=== PATIENT | female | born 1970 | race Caucasian/White ===

== ENCOUNTER 2016-07-02 15:52 | Emergency (ER) | payer MEDICAID ==
--- NOTE | 2016-07-02 16:30 | Emergency Department Record ---
History of Present Illness - General Chief Complaint: Numbness Stated Complaint: THINKS SHE MAY HAVE HAD A STROKE Time Seen by Provider: 07/02/16 16:08 Source: Patient Mode of Arrival: Ambulatory - History of Present Illness Initial Comments: The patient states that she thinks she may have had a stroke. She was seen here Friday06-29-16 and was treated for a muscle spasm in her right shoulder, arm, and back and given norco for home. She is back now because this same arm, her forearm, is feeling "heavy" and she has to pick it up with her other hand. She states, "I feel like I wanna crawl out of my skin and yell at it." [facility] includes diagnosed with aneurysm in 2006 which was just watched. In 2011 it was enlarging, so she had brain surgery to repair it in [facility]. She states they were finishing up with her surgery, they saw a clot forming, quirted something to dissolve the clot and the next thing she knows she woke up in ICU 4 days later after having been in a coma. She had rehab to walk and talk again, but has trouble with her memory, and a trace of left leg weakness. She has had a total of 4 seizures for which she takes Topamax. Today she has the same symptoms only the forearm is heavy. She denies bee, stiff neck, vision changes, nausea, vomiting, or other new symptoms. She wants to be checked for a stroke. She has 2 coils and a stent in her brain, and is told she needs surgery for another stent because of blood flow abnormality. Onset/Timin -: Days(s) Place: Home Associated Symptoms: Confusion, Headaches, Weakness Treatments Prior to Arrival: Other Treatment Prior to Arrival Comment:: Tylenol. - [place] Coma Scale Eye Response: (4) Open spontaneously Motor Response: (6) Obeys commands Verbal Response: (5) Oriented [place] Total: 15 - Related Data Home Medications: Home Medications Medication Instructions Recorded Confirmed Last Taken Clonazepam [Klonopin] 2 mg PO DAILY 07/02/16 07/02/16 07/02/16 Clopidogrel Bisulfate [Plavix] 75 mg PO DAILY 07/02/16 07/02/16 07/02/16 Ferrous Sulfate [Iron] 325 mg PO DAILY 07/02/16 07/02/16 07/02/16 Fluoxetine HCl [Prozac] 40 mg PO DAILY 07/02/16 07/02/16 07/02/16 Folic Acid 1 mg PO DAILY 07/02/16 07/02/16 07/02/16 Quetiapine Fumarate [Seroquel] 100 mg PO DAILY 07/02/16 07/02/16 07/02/16 Topiramate [Topamax] 50 mg PO DAILY 07/02/16 07/02/16 07/02/16 Allergies/Adverse Reactions: Allergies Allergy/AdvReac Type Severity Reaction Status Date / Time aspirin Allergy HYPERSENSIT Verified 07/02/16 16:05 IVITY Penicillins Allergy ANAPHYLAXIS Verified 07/02/16 16:05 Travel Screening - Travel/Exposure Within Last 30 Days Have you traveled within the last 30 days?: No Review of Systems Reviewed: No additional complaints except as noted below Constitutional: Reports: As per HPI. Denies: Chills, Fever, Malaise, Night sweats, Weakness, Weight change Eyes: Reports: As per HPI. Denies: Eye discharge, Eye pain, Photophobia, Vision change ENT: Reports: As per HPI. Denies: Congestion, Dental pain, Ear pain, Epistaxis , Hearing loss, Throat pain Respiratory: Reports: As per HPI. Denies: Cough, Dyspnea, Hemoptysis, Stridor, Wheezes Cardiovascular: Reports: As per HPI. Denies: Arrhythmia, Chest pain, Dyspnea on exertion, Edema, Murmurs, Orthopnea, Palpitations, Paroxysmal nocturnal dyspnea, Rheumatic Fever, Syncope Endocrine: Reports: As per HPI. Denies: Fatigue, Heat or cold intolerance, Polydipsia, Polyuria Gastrointestinal: Reports: As per HPI. Denies: Abdominal pain, Constipation, Diarrhea, Hematemesis, Hematochezia, Melena, Nausea, Vomiting Genitourinary: Reports: As per HPI. Denies: Abnormal menses, Discharge, Dyspareunia, Dysuria, Frequency, Hematuria, Incontinence, Retention, Urgency Musculoskeletal: Reports: As per HPI. Denies: Arthralgia, Back pain, Gout, Joint swelling, Myalgia, Neck pain Skin: Reports: As per HPI. Denies: Bruising, Change in color, Change in hair/ nails, Lesions, Pruritus, Rash Neurological: Reports: As per HPI. Denies: Abnormal gait, Confusion, Headache, Numbness, Paresthesias, Seizure, Tingling, Tremors, Vertigo, Weakness Psychiatric: Reports: As per HPI. Denies: Anxiety, Auditory hallucinations, Depression, Homicidal thoughts, Suicidal thoughts, Visual hallucinations Hematological/Lymphatic: Reports: As per HPI. Denies: Anemia, Blood Clots, Easy bleeding, Easy bruising, Swollen glands Past Medical History - SOCIAL HISTORY Smoking Status: Former smoker Alcohol Use: None Drug Use: None - RESPIRATORY Hx Respiratory Disorders: No - CARDIOVASCULAR Hx Cardio Disorders: No - NEURO Hx Neuro Disorders: Yes Hx Seizures: Yes (2011) Hx TIA: Yes - GI Hx GI Disorders: Yes Comment:: colitis - Hx Genitourinary Disorders: No - ENDOCRINE Hx Endocrine Disorders: No - MUSCULOSKELETAL Hx Musculoskeletal Disorders: Yes Hx Fibromyalgia: Yes - PSYCH Hx Psych Problems: Yes Hx Anxiety: Yes Hx Depression: Yes - HEMATOLOGY/ONCOLOGY Hx Hematology/Oncology Disorders: No Family Medical History Any Significant Family History?: No Physical Exam - General General Appearance: Alert, Oriented x3, Cooperative, No acute distress, Anxious (slightly abnormal affect with trace of anxiety; difficult to know if this is her baseline) - Head Head exam: Normal inspection - Eye Eye exam: Normal appearance, PERRL, EOMI. negative: Nystagmus Pupils: Normal accommodation. negative: Miosis, Mydriatic, Unequal - ENT ENT exam: Normal exam, Mucous membranes moist, Normal external ear exam, Normal orophraynx, TM's normal bilaterally Ear exam: Normal external inspection. negative: External canal tenderness Nasal Exam: Normal inspection. negative: Discharge, Sinus tenderness Mouth exam: Normal external inspection, Tongue normal Teeth exam: Normal inspection. negative: Dental caries Throat exam: Normal inspection. negative: Tonsillar erythema, Tonsillar exudate - Neck Neck exam: Normal inspection, Full ROM. negative: Lymphadenopathy, Meningismus , Tenderness - Respiratory Respiratory exam: Normal lung sounds bilaterally. negative: Respiratory distress - Cardiovascular Cardiovascular Exam: Normal rhythm, Normal heart sounds, Tachycardia - GI/Abdominal GI/Abdominal exam: Soft, Normal bowel sounds. negative: Tenderness - Rectal Rectal exam: Deferred - exam: Deferred - Extremities Extremities exam: Normal inspection, Full ROM, Normal capillary refill. negative: Calf tenderness, Pedal edema, Tenderness - Back Back exam: Reports: Normal inspection, Full ROM. Denies: Muscle spasm, Rash noted, Tenderness - Neurological Neurological exam: Alert, CN II-XII intact, Normal gait, Oriented X3, Reflexes normal (reflexes equal bilaterally brisk 2-3 plus times 4 extremities), Other ( patient will not lift her right arm, but when distracted she held up both arms for at least a minute with normal strength; pulses, color, temperature are equal bilaterally in the arms; there is no edema, no bony tenderness, but patient complains, "my muscles hurt, don't touch there" pointing to her forearm muscles. ) - Psychiatric Psychiatric exam: Anxious, Flat affect, Normal mood. negative: Homicidal ideation, Suicidal ideation - Skin Skin exam: Dry, Intact, Normal color, Warm Course Vital Signs 07/02/16 15:57 Temperature 98.5 F Pulse Rate 120 H Respiratory 22 Rate Blood Pressure 128/92 Pulse Ox 96 - Reevaluation(s) Reevaluation #1: Interviewed boyfriend and two kids who live with the patient. They have not witnessed any abnormal behavior for her, no seizing, no falls. Boyfriend thinks she is nervous about her brain surgery coming up in July in [place]. 07/02/16 17:12 07/02/16 17:31 Reevaluation #2: Patient 07/02/16 17:31 Reevaluation #3: Patient is feeling much better. Smiling, ready to go home. She was instructed to call her PCP in [place] tomorrow to recheck this week. She is not to drive. 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 ) - Lab Data Result diagrams: 07/02/16 16:47 07/02/16 16:47 Disposition Disposition: Discharge Clinical Impression: Anxiety, Pain of right forearm Disposition: Home, Self-Care Condition: (1) Good Instructions: Generalized Anxiety Disorder (ED) Additional Instructions: Home with family. Do not drive. Continue present meds. Take your clonidine tonight as prescribed. Follow up with PCP later this week for recheck of arm pain. Call in a.m. for this appointment.
[2016-07-02] MEDS ORDERED: LORAZEPAM 2 MG/ML VIAL IV ONE (16:56)
[2016-07-02 17:02] LABS: BASO % 0.6 % (0-6); EOS % 2.6 % (0-6); GRAN % 62.3 % (47-80); HEMOGLOBIN 12.1 gm/dl (11.6-16.0); LYMPH % 22.7 % (16-45); MEAN CELL VOLUME 90.2 fl (81-97); MEAN CORPUSCULAR HEMOGLOBIN 29.5 pg (27-33); MEAN CORPUSCULAR HGB CONC 32.7 g/dl (32-36); MEAN PLATELET VOLUME 9.7 fl (7.4-10.4); MONO % 11.8 % (0-9); PLATELET COUNT 267 K/uL (130-400); RED CELL DISTRIBUTION WIDTH 13.5 % (11.5-14.5); WHITE BLOOD COUNT W/O DIFF 5.3 K/uL (4.2-12.2)
[2016-07-02 17:06] LABS: URINE APPEARANCE CLEAR; URINE BILIRUBIN NEGATIVE (NEGATIVE); URINE BLOOD TRACE-I (NEGATIVE); URINE COLOR YELLOW; URINE GLUCOSE (UA) NEGATIVE (NEGATIVE); URINE KETONE TRACE (NEGATIVE); URINE LEUKOCYTE ESTERASE NEGATIVE (NEGATIVE); URINE NITRITE NEGATIVE (NEGATIVE); URINE PROTEIN NEGATIVE (NEGATIVE); URINE UROBILINOGEN 0.2 E.U./dL (0.20 - 1.00)
[2016-07-02 17:09] LABS: ANION GAP 8.4 (7-16); BLOOD UREA NITROGEN 8 mg/dL (7-17); CARBON DIOXIDE 21.6 mmol/L (22-30); CREATININE 0.7 mg/dL (0.52-1.04); EST GLOMERULAR FILTRATION RATE > 60 ml/min; GLUCOSE,RANDOM 89 mg/dL (70-110)
[2016-07-02 17:11] LABS: INR 0.94; PARTIAL THROMBOPLASTIN TIME 27.7 SECONDS (24.5-39.1); PROTHROMBIN TIME (PATIENT) 10.6 SECONDS (9.5-12.1)
[2016-07-02 17:17] LABS: URINE BACTERIA FEW; URINE MUCUS MODERATE; URINE RBC 0 - 2 (NONE SEEN); URINE SQUAMOUS EPITHELIAL CELL 0 - 2 /hpf; URINE WBC 0 - 2 (0-2/hpf)
[2016-07-02 17:22] LABS: CKMB < 0.2 ug/L (0-6); TROPONIN I < 0.012 ng/mL (0.00-0.034)
== END 2016-07-02 17:45 | disposition home or self-care (01) ==
LOC: ER 15:52
DX: M79.631 Pain in right forearm (principal); R51 Headache; R53.1 Weakness; R20.2 Paresthesia of skin; R41.0 Disorientation, unspecified; G40.909 Epilepsy, unspecified, not intractable, without status epilepticus; F41.9 Anxiety disorder, unspecified
CPT/HCPCS: 99284 ×2; 96374; 85025; 85730; 85610; 82553; 84484; 80048; 81001; 70450; J2060

== ENCOUNTER 2016-12-09 10:30 | Emergency (ER) | payer MEDICAID ==
[2016-12-09] MEDS ORDERED: PREDNISONE 20 MG TAB PO ONE (10:43)
[2016-12-09] MEDS ORDERED: AZITHROMYCIN 500 MG TABLET PO ONE (10:43)
--- NOTE | 2016-12-09 10:49 | Emergency Department Record ---
History of Present Illness - General Chief Complaint: Cough Stated Complaint: COUGH Time Seen by Provider: 12/09/16 10:40 Source: Patient Mode of Arrival: Ambulatory Limitations: No limitations - History of Present Illness Initial Comments: 46 yo female presents with sore throat for one week. For the last several days she has had cough that is productive with green sputum. No fevers. NO nausea or vomiting. No rash. No edema. No chest pain. She quit smoking in 2011. She denies any formal diagnosis of asthma or COPD. No vomiting. She has chronic colitis with loose stools without blood. MD Complaint: Cough, Nasal congestion, Sore throat Onset/Timin -: Week(s) Severity: Moderate Severity scale (1-10): 6 Consistency: Intermittent Improves With: Nothing Worsens With: Other (cough) Treatments Prior to Arrival: None - Related Data Previous Rx's Medication Instructions Recorded Hydrocodone/Acetaminophen [[place] 1 each PO QID #10 tablet 06/29/16 5-325 Tablet] Azithromycin [Zithromax] 250 mg PO DAILY #4 tab 12/09/16 Prednisone [Prednisone 20Mg] 20 mg PO BID #10 tab 12/09/16 Allergies Allergy/AdvReac Type Severity Reaction Status Date / Time Opioids - Morphine Analogues Allergy Intermediate RASH Verified 12/09/16 10:36 aspirin Allergy HYPERSENSIT Verified 12/09/16 10:36 IVITY Penicillins Allergy ANAPHYLAXIS Verified 12/09/16 10:36 Travel Screening - Travel/Exposure Within Last 30 Days Have you traveled within the last 30 days?: No Review of Systems Constitutional: Denies: Chills, Fever, Malaise, Weakness Eyes: Denies: Eye discharge, Eye pain, Photophobia, Vision change ENT: Reports: Congestion Respiratory: Reports: Cough. Denies: Dyspnea, Hemoptysis, Stridor, Wheezes Cardiovascular: Denies: Chest pain, Palpitations, Syncope Endocrine: Denies: Fatigue, Polydipsia, Polyuria Gastrointestinal: Reports: Diarrhea (chronic). Denies: Abdominal pain, Constipation, Melena, Nausea, Vomiting Genitourinary: Denies: Dysuria, Urgency Musculoskeletal: Denies: Arthralgia, Back pain, Myalgia, Neck pain Skin: Denies: Bruising, Change in color, Pruritus Neurological: Denies: Headache, Numbness, Weakness Psychiatric: Denies: Anxiety Hematological/Lymphatic: Denies: Anemia, Blood Clots, Easy bleeding, Easy bruising, Swollen glands Past Medical History - SOCIAL HISTORY Smoking Status: Former smoker Alcohol Use: None Drug Use: None - RESPIRATORY Hx Respiratory Disorders: No - CARDIOVASCULAR Hx Cardio Disorders: No - NEURO Hx Neuro Disorders: Yes Hx Seizures: Yes (2011) Hx TIA: Yes - GI Hx GI Disorders: Yes Comment:: colitis - Hx Genitourinary Disorders: No - ENDOCRINE Hx Endocrine Disorders: No - MUSCULOSKELETAL Hx Musculoskeletal Disorders: Yes Hx Fibromyalgia: Yes - PSYCH Hx Psych Problems: Yes Hx Anxiety: Yes Hx Depression: Yes - HEMATOLOGY/ONCOLOGY Hx Hematology/Oncology Disorders: No Family Medical History Any Significant Family History?: No Physical Exam - General General Appearance: Alert, Oriented x3, Cooperative, No acute distress Limitations: No limitations - Head Head exam: Atraumatic, Normocephalic, Normal inspection - Eye Eye exam: Normal appearance. negative: Conjunctival injection, Periorbital swelling - ENT ENT exam: Normal exam, Mucous membranes moist Ear exam: Normal external inspection Nasal Exam: Normal inspection Mouth exam: Normal external inspection Teeth exam: Normal inspection Throat exam: Tonsillar erythema. negative: Normal inspection, Tonsillomegaly, Tonsillar exudate, R peritonsillar mass, L peritonsillar mass - Neck Neck exam: Normal inspection. negative: Lymphadenopathy - Respiratory Respiratory exam: Normal lung sounds bilaterally, Rhonchi. negative: Accessory muscle use, Decreased breath sounds, Prolonged expiratory, Respiratory distress , Wheezes - Cardiovascular Cardiovascular Exam: Regular rate, Normal rhythm, Normal heart sounds - GI/Abdominal GI/Abdominal exam: Soft. negative: Tenderness - Rectal Rectal exam: Deferred - exam: Deferred - Extremities Extremities exam: Normal inspection, Full ROM, Normal capillary refill. negative: Tenderness - Back Back exam: Reports: Normal inspection, Full ROM. Denies: CVA tenderness (R), CVA tenderness (L), Muscle spasm, Rash noted, Tenderness - Neurological Neurological exam: Alert, Normal gait, Oriented X3 - Psychiatric Psychiatric exam: Normal affect, Normal mood. negative: Agitated, Anxious - Skin Skin exam: Dry, Intact, Normal color, Warm Course Vital Signs 12/09/16 10:38 Temperature 98.6 F Pulse Rate 92 H Respiratory 20 Rate Blood Pressure 120/75 Pulse Ox 98 - Reevaluation(s) Reevaluation #1: Vitals reviewed No tachycardia, hypoxia 12/09/16 10:46 Disposition Disposition: Discharge Clinical Impression: Bronchitis Disposition: Home, Self-Care Condition: (1) Good Instructions: Acute Bronchitis (ED) Additional Instructions: Call your doctor for close follow up Return if worse or any new concerns Take the medication as directed Prescriptions: Azithromycin [Zithromax] 250 mg PO DAILY #4 tab Prednisone [Prednisone 20Mg] 20 mg PO BID #10 tab Forms: Patient Portal Access Time of Disposition: 10:48 Quality - Quality Measures Quality Measures: N/A - Blood Pressure Screening Does Patient Have Any of the Following: No Blood Pressure Classification: Pre-Hypertensive BP Reading Systolic Measurement: 120 Diastolic Measurement: 75 Screening for High Blood Pressure: < Pre-Hypertensive BP, F/U Documented > [ G8950] Pre-Hypertensive Follow-up Interventions: Referral to alternative/primary care provider.
== END 2016-12-09 11:00 | disposition home or self-care (01) ==
LOC: ER 10:30
DX: J20.9 Acute bronchitis, unspecified (principal); Z87.891 Personal history of nicotine dependence
CPT/HCPCS: 99282; J7512

== ENCOUNTER 2017-02-03 11:25 | Emergency (ER) | payer MEDICAID ==
--- NOTE | 2017-02-03 11:40 | Emergency Department Record ---
History of Present Illness - General Chief complaint: Female Urogenital Problem Stated complaint: BLADDER PROBLEMS Time Seen by Provider: 02/03/17 11:27 Source: Patient Mode of Arrival: Ambulatory Limitations: No limitations - History of Present Illness Initial comments: 46 yo female presents with increased urination and urge to urinate the last 5 days. She feels like her bladder fills quickly, she voids and then needs to void again. No fevers. No hematuria. No nausea or vomiting. No back pain. No other symptoms. She denies history of DM, renal stones, bladder surgery, kidney disease. She states her urine has a cloudy residue. She denies vaginal discharge or bleeding. MD Complaint: Dysuria -: Days(s) (5) Location: Suprapubic Radiation: Non-radiating Severity: Moderate Quality: Other (Pressure) Consistency: Constant Improves with: None Worsens with: None Associated Symptoms: Denies other symptoms - Related Data Previous Rx's Medication Instructions Recorded Metronidazole [Flagyl] 500 mg PO BID #13 tablet 02/03/17 Allergies Allergy/AdvReac Type Severity Reaction Status Date / Time Opioids - Morphine Analogues Allergy Intermediate RASH Verified 12/09/16 10:36 aspirin Allergy HYPERSENSIT Verified 12/09/16 10:36 IVITY Penicillins Allergy ANAPHYLAXIS Verified 12/09/16 10:36 Review of Systems Constitutional: Denies: Chills, Fever, Malaise, Weakness Eyes: Denies: Eye discharge, Eye pain ENT: Denies: Congestion, Throat pain Respiratory: Denies: Cough, Dyspnea, Hemoptysis Cardiovascular: Denies: Chest pain, Syncope Endocrine: Reports: Polyuria. Denies: Fatigue, Polydipsia Gastrointestinal: Reports: As per HPI, Abdominal pain. Denies: Diarrhea, Nausea , Vomiting Genitourinary: Reports: Discharge (cloudy urine), Dysuria, Frequency, Urgency. Denies: Abnormal menses, Hematuria, Incontinence Musculoskeletal: Denies: Arthralgia, Back pain, Myalgia, Neck pain Skin: Denies: Bruising, Change in color, Rash Neurological: Denies: Headache, Numbness, Weakness Psychiatric: Denies: Anxiety Hematological/Lymphatic: Denies: Blood Clots, Easy bleeding, Easy bruising, Swollen glands Past Medical History - SOCIAL HISTORY Smoking Status: Former smoker Drug Use: None - RESPIRATORY Hx Respiratory Disorders: No - CARDIOVASCULAR Hx Cardio Disorders: No - NEURO Hx Neuro Disorders: Yes Hx Seizures: Yes (2011) Hx TIA: Yes - GI Hx GI Disorders: Yes Comment:: colitis - Hx Genitourinary Disorders: No - ENDOCRINE Hx Endocrine Disorders: No - MUSCULOSKELETAL Hx Musculoskeletal Disorders: Yes Hx Fibromyalgia: Yes - PSYCH Hx Psych Problems: Yes Hx Anxiety: Yes Hx Depression: Yes - HEMATOLOGY/ONCOLOGY Hx Hematology/Oncology Disorders: No Physical Exam - General General Appearance: Alert, Oriented x3, Cooperative, No acute distress Limitations: No limitations - Head Head exam: Normal inspection - Eye Eye exam: Normal appearance, PERRL. negative: Conjunctival injection, Scleral icterus - ENT ENT exam: Normal exam Ear exam: Normal external inspection Nasal Exam: Normal inspection Mouth exam: Normal external inspection - Neck Neck exam: Normal inspection - Respiratory Respiratory exam: Normal lung sounds bilaterally. negative: Respiratory distress - Cardiovascular Cardiovascular Exam: Regular rate, Normal rhythm, Normal heart sounds - GI/Abdominal GI/Abdominal exam: Soft, Tenderness (very mild tenderness suprapubic) - Rectal Rectal exam: Deferred - exam: Vaginal bleeding, Vaginal discharge, Vaginal erythema. negative: Abnormal external exam, Adnexal mass (L), Adnexal mass (R), Adnexal tenderness ( L), Adnexal tenderness (R), cervical motion tenderness - Extremities Extremities exam: Normal inspection. negative: Pedal edema - Back Back exam: Reports: Normal inspection, Full ROM. Denies: CVA tenderness (R), CVA tenderness (L), Muscle spasm, Paraspinal tenderness, Tenderness - Neurological Neurological exam: Alert, Oriented X3 - Psychiatric Psychiatric exam: Normal affect, Normal mood - Skin Skin exam: Dry, Intact, Normal color, Warm Course - Reevaluation(s) Reevaluation #1: 02/03/17 11:56 The CBC was reviewed No acute changes. She has chronic changes of low WBC and Hgb similar to historical values. 02/03/17 12:11 No acute changes on the BMP No acute changes on the UA I recommend pelvic examination given her symptoms without acute findings She agrees. 02/03/17 12:45 The wet prep was positive for trichomonas Flagyl was prescribed Medical Decision Making - Lab Data Result diagrams: 02/03/17 11:40 02/03/17 11:40 Disposition Disposition: Discharge Clinical Impression: Trichomonas vaginalis infection Disposition: Home, Self-Care Condition: (1) Good Instructions: Trichomoniasis (ED) Additional Instructions: Take the Flagyl twice daily for one week Your sexual partner should be treated You have cultures pending for other possible inflections. No alcohol while on flagyl Prescriptions: Metronidazole [Flagyl] 500 mg PO BID #13 tablet Forms: Patient Portal Access Time of Disposition: 12:48 Quality - Quality Measures Quality Measures: N/A - Blood Pressure Screening Does Patient Have Any of the Following: No Blood Pressure Classification: Pre-Hypertensive BP Reading Systolic Measurement: 125 Diastolic Measurement: 80 Screening for High Blood Pressure: < Pre-Hypertensive BP, F/U Documented > [ G8950] Pre-Hypertensive Follow-up Interventions: Referral to alternative/primary care provider.
[2017-02-03 11:49] LABS: BASO % 0.8 % (0-6); EOS % 5.3 % (0-6); GRAN % 58.2 % (47-80); HEMOGLOBIN 11.4 gm/dl (11.6-16.0); LYMPH % 25.1 % (16-45); MEAN CELL VOLUME 91.4 fl (81-97); MEAN CORPUSCULAR HEMOGLOBIN 28.1 pg (27-33); MEAN CORPUSCULAR HGB CONC 30.8 g/dl (32-36); MEAN PLATELET VOLUME 9.6 fl (7.4-10.4); MONO % 10.6 % (0-9); PLATELET COUNT 229 K/uL (130-400); RED BLOOD COUNT 4.05 M/uL (3.80-5.40); RED CELL DISTRIBUTION WIDTH 13.6 % (11.5-14.5); WHITE BLOOD COUNT W/O DIFF 3.8 K/uL (4.2-12.2)
[2017-02-03 11:56] LABS: URINE APPEARANCE CLEAR; URINE BILIRUBIN NEGATIVE (NEGATIVE); URINE BLOOD NEGATIVE (NEGATIVE); URINE COLOR YELLOW; URINE GLUCOSE (UA) NEGATIVE (NEGATIVE); URINE KETONE NEGATIVE (NEGATIVE); URINE LEUKOCYTE ESTERASE TRACE (NEGATIVE); URINE NITRITE NEGATIVE (NEGATIVE); URINE PROTEIN NEGATIVE (NEGATIVE); URINE UROBILINOGEN 0.2 E.U./dL (0.20 - 1.00)
[2017-02-03 12:05] LABS: BLOOD UREA NITROGEN 10 mg/dL (6-20); CREATININE 0.6 mg/dL (0.5-0.9); EST GLOMERULAR FILTRATION RATE > 60 mL/min
[2017-02-03 12:08] LABS: GLUCOSE,RANDOM 99 mg/dL (74-109)
[2017-02-03 12:10] LABS: URINE BACTERIA NONE SEEN; URINE RBC 0 - 2 (NONE SEEN); URINE SQUAMOUS EPITHELIAL CELL 0 - 2 /hpf; URINE WBC 0 - 2 (0-2/hpf)
[2017-02-03] MEDS ORDERED: METRONIDAZOLE 250 MG TABLET PO ONE (12:44)
[2017-02-04 16:32] LABS: GC SPECIMEN TYPE Vaginal
== END 2017-02-03 13:10 | disposition home or self-care (01) ==
LOC: ER 11:25
DX: A59.01 Trichomonal vulvovaginitis (principal); R30.0 Dysuria
CPT/HCPCS: 99284 ×2; 85025; 80048; 81001; Q0111; 87210

== ENCOUNTER 2017-02-15 16:39 | Emergency (ER) | payer MEDICAID ==
--- NOTE | 2017-02-15 17:00 | Emergency Department Record ---
History of Present Illness - General Chief complaint: Female Urogenital Problem Stated complaint: BLADDER/STD RECHECK Time Seen by Provider: 02/15/17 16:54 Source: Patient Mode of Arrival: Ambulatory Limitations: No limitations - History of Present Illness Initial comments: 46 yo female presents with two concerns. She has urinary frequency and urgency and requests a recheck of her pelvic examination. She was recently diagnosis with trichomonas. MD Complaint: Dysuria, Possible STD Onset/Timin -: Week(s) Location: Suprapubic Severity: Moderate Quality: Burning Consistency: Intermittent Improves with: None Worsens with: Urination Patient : No - Related Data Previous Rx's Medication Instructions Recorded Nitrofurantoin Monohyd/M-Cryst 100 mg PO BID #14 capsule 02/15/17 [Macrobid 100 mg Capsule] Allergies Allergy/AdvReac Type Severity Reaction Status Date / Time Opioids - Morphine Analogues Allergy Intermediate RASH Verified 02/15/17 16:56 aspirin Allergy HYPERSENSIT Verified 02/15/17 16:56 IVITY Penicillins Allergy ANAPHYLAXIS Verified 02/15/17 16:56 Travel Screening - Travel/Exposure Within Last 30 Days Have you traveled within the last 30 days?: No Review of Systems Constitutional: Denies: Chills, Fever, Malaise, Weakness Eyes: Denies: Eye discharge ENT: Denies: Congestion, Throat pain Respiratory: Denies: Cough, Dyspnea, Hemoptysis Cardiovascular: Denies: Chest pain, Syncope Endocrine: Denies: Fatigue Gastrointestinal: Reports: Abdominal pain. Denies: Diarrhea, Nausea, Vomiting Genitourinary: Reports: Abnormal menses, Dysuria, Frequency, Urgency. Denies: Discharge, Hematuria, Incontinence Musculoskeletal: Denies: Arthralgia, Back pain, Myalgia, Neck pain Skin: Denies: Bruising, Change in color, Rash Neurological: Denies: Confusion, Headache, Numbness Psychiatric: Denies: Anxiety Hematological/Lymphatic: Denies: Blood Clots, Easy bleeding, Easy bruising, Swollen glands Past Medical History - SOCIAL HISTORY Smoking Status: Former smoker Alcohol Use: None Drug Use: None - RESPIRATORY Hx Respiratory Disorders: No - CARDIOVASCULAR Hx Cardio Disorders: No - NEURO Hx Neuro Disorders: Yes Hx Seizures: Yes (2011) Hx TIA: Yes - GI Hx GI Disorders: Yes Comment:: colitis - Hx Genitourinary Disorders: No - ENDOCRINE Hx Endocrine Disorders: No - MUSCULOSKELETAL Hx Musculoskeletal Disorders: Yes Hx Fibromyalgia: Yes - PSYCH Hx Psych Problems: Yes Hx Anxiety: Yes Hx Depression: Yes - HEMATOLOGY/ONCOLOGY Hx Hematology/Oncology Disorders: No Family Medical History Any Significant Family History?: No Physical Exam - General General Appearance: Alert, Oriented x3, Cooperative, No acute distress Limitations: No limitations - Head Head exam: Atraumatic, Normal inspection - Eye Eye exam: Normal appearance, Conjunctival injection - ENT ENT exam: Normal exam, Mucous membranes moist Ear exam: Normal external inspection Nasal Exam: Normal inspection Mouth exam: Normal external inspection - Neck Neck exam: Normal inspection - Respiratory Respiratory exam: Normal lung sounds bilaterally. negative: Respiratory distress - Cardiovascular Cardiovascular Exam: Regular rate, Normal rhythm, Normal heart sounds - GI/Abdominal GI/Abdominal exam: Soft. negative: Tenderness - Rectal Rectal exam: Deferred - exam: Normal bimanual exam, Vaginal discharge (minimal thin white). negative : Vaginal bleeding, Vaginal erythema - Extremities Extremities exam: Normal inspection - Back Back exam: Denies: CVA tenderness (R), CVA tenderness (L) - Neurological Neurological exam: Alert, Normal gait, Oriented X3, Reflexes normal - Psychiatric Psychiatric exam: Normal affect, Normal mood - Skin Skin exam: Dry, Intact, Normal color, Warm Course Vital Signs 02/15/17 16:52 Temperature 98.1 F Pulse Rate 87 Respiratory 16 Rate Blood Pressure 122/81 Pulse Ox 97 - Reevaluation(s) Reevaluation #1: 02/15/17 17:52 UA few bacteria Wet Prep negative for trich or yeast Recent chlamydia and gonorrhea were negative Disposition Disposition: Discharge Clinical Impression: Dysuria Disposition: Home, Self-Care Condition: (1) Good Instructions: Dysuria (ED), Urinary Tract Infection in Women (ED) Additional Instructions: Stay well hydrated Follow up with your doctor as scheduled Return if fever or pain Prescriptions: Nitrofurantoin Monohyd/M-Cryst [Macrobid 100 mg Capsule] 100 mg PO BID #14 capsule Forms: Patient Portal Access Time of Disposition: 17:53 Quality - Quality Measures Quality Measures: N/A - Blood Pressure Screening Does Patient Have Any of the Following: No Blood Pressure Classification: Pre-Hypertensive BP Reading Systolic Measurement: 122 Diastolic Measurement: 81 Screening for High Blood Pressure: < Pre-Hypertensive BP, F/U Documented > [ G8950] Pre-Hypertensive Follow-up Interventions: Referral to alternative/primary care provider.
[2017-02-15 17:06] LABS: URINE APPEARANCE CLEAR; URINE BILIRUBIN NEGATIVE (NEGATIVE); URINE BLOOD TRACE-I (NEGATIVE); URINE COLOR YELLOW; URINE GLUCOSE (UA) NEGATIVE (NEGATIVE); URINE KETONE NEGATIVE (NEGATIVE); URINE LEUKOCYTE ESTERASE NEGATIVE (NEGATIVE); URINE NITRITE NEGATIVE (NEGATIVE); URINE PROTEIN NEGATIVE (NEGATIVE); URINE UROBILINOGEN 0.2 E.U./dL (0.20 - 1.00)
[2017-02-15 17:17] LABS: URINE BACTERIA FEW; URINE EPITHELIAL CELLS 0 - 2 (FEW); URINE RBC 0 - 2 (NONE SEEN); URINE WBC 0 - 2 (0-2/hpf)
[2017-02-17 17:33] LABS: GC SPECIMEN TYPE Vaginal
== END 2017-02-15 18:06 | disposition home or self-care (01) ==
LOC: ER 16:39
DX: R30.0 Dysuria (principal); R35.0 Frequency of micturition
CPT/HCPCS: 99284 ×2; 81001; 81025; Q0111; 87210

== ENCOUNTER 2017-02-28 19:06 | Emergency (ER) | payer MEDICAID ==
[2017-02-28] MEDS ORDERED: IBUPROFEN 600 MG TABLET PO ONE (19:17)
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
--- NOTE | 2017-03-01 08:25 | RADIOLOGY REPORT ---
EXAM: ANKLE LEFT 3 VIEWS HISTORY: TWISTED THE ANKLE 11 DAYS AGO. PERSISTENT SEVERE PAIN. TECHNIQUE: Three views of the left ankle were obtained. COMPARISON: None. FINDINGS: The bones appear intact. There is no visible acute fracture or dislocation. The ankle mortise is intact. No significant soft tissue swelling is identified. IMPRESSION: NO ACUTE LEFT ANKLE PATHOLOGY. JOB NUMBER: [id number] MTDD
== END 2017-02-28 19:51 | disposition home or self-care (01) ==
LOC: ER 19:06
DX: S93.402A Sprain of unspecified ligament of left ankle, initial encounter (principal); X50.1XXA Overexertion from prolonged static or awkward postures, initial encounter; Y92.009 Unspecified place in unspecified non-institutional (private) residence as the place of occurrence of the external cause
CPT/HCPCS: 99283

== ENCOUNTER 2017-05-01 11:26 | Emergency (ER) | payer MEDICAID ==
--- NOTE | 2017-05-01 11:41 | Emergency Department Record ---
History of Present Illness - General Chief complaint: Female Urogenital Problem Stated complaint: BLADDER ISSUE Time Seen by Provider: 05/01/17 11:33 Source: Patient Mode of Arrival: Ambulatory Limitations: No limitations - History of Present Illness Initial comments: 47 yo female presents with recurrent urinary frequency. No fevers or blood. No pus, discharge, or fever. The symptoms have been ongoing for 3 days. She has had these symptoms in the past. She was told it could be related to going through menopause. MD Complaint: Dysuria -: Days(s) (3) Radiation: Non-radiating Severity: Moderate Quality: Other (full bladder feeling) Consistency: Constant Improves with: None Worsens with: None Patient : No Associated Symptoms: Denies other symptoms - Related Data Allergies Allergy/AdvReac Type Severity Reaction Status Date / Time Opioids - Morphine Analogues Allergy Intermediate RASH Verified 05/01/17 11:42 aspirin Allergy HYPERSENSIT Verified 05/01/17 11:42 IVITY Penicillins Allergy ANAPHYLAXIS Verified 05/01/17 11:42 Review of Systems Constitutional: Denies: Chills, Fever, Malaise, Weakness Eyes: Denies: Eye discharge ENT: Denies: Congestion, Throat pain Respiratory: Denies: Cough, Dyspnea, Hemoptysis, Wheezes Cardiovascular: Denies: Chest pain, Syncope Endocrine: Denies: Fatigue Gastrointestinal: Denies: Abdominal pain, Diarrhea, Nausea, Vomiting Genitourinary: Reports: Abnormal menses (perimenopausal), Dysuria, Frequency, Urgency. Denies: Discharge, Dyspareunia, Hematuria, Incontinence, Retention Musculoskeletal: Denies: Arthralgia, Back pain, Myalgia Skin: Denies: Bruising, Change in color, Rash Neurological: Denies: Headache, Numbness, Weakness Psychiatric: Denies: Anxiety Hematological/Lymphatic: Denies: Blood Clots, Easy bleeding, Easy bruising, Swollen glands Past Medical History - SOCIAL HISTORY Smoking Status: Former smoker Drug Use: None - RESPIRATORY Hx Respiratory Disorders: No - CARDIOVASCULAR Hx Cardio Disorders: No - NEURO Hx Neuro Disorders: Yes Hx Seizures: Yes (2011) Hx TIA: Yes - GI Hx GI Disorders: Yes Comment:: colitis - Hx Genitourinary Disorders: No - ENDOCRINE Hx Endocrine Disorders: No - MUSCULOSKELETAL Hx Musculoskeletal Disorders: Yes Hx Fibromyalgia: Yes - PSYCH Hx Psych Problems: Yes Hx Anxiety: Yes Hx Depression: Yes - HEMATOLOGY/ONCOLOGY Hx Hematology/Oncology Disorders: No Physical Exam - General General Appearance: Alert, Oriented x3, Cooperative, No acute distress Limitations: No limitations - Head Head exam: Normal inspection - Eye Eye exam: Normal appearance - ENT ENT exam: Normal exam Ear exam: Normal external inspection Nasal Exam: Normal inspection Mouth exam: Normal external inspection - Neck Neck exam: Normal inspection, Full ROM. negative: Tenderness - Respiratory Respiratory exam: Normal lung sounds bilaterally. negative: Respiratory distress - Cardiovascular Cardiovascular Exam: Regular rate, Normal rhythm, Normal heart sounds - GI/Abdominal GI/Abdominal exam: Soft. negative: Distended, Guarding, Rebound, Rigid, Tenderness - Rectal Rectal exam: Deferred - exam: Deferred - Extremities Extremities exam: Normal inspection, Full ROM, Normal capillary refill. negative: Tenderness - Back Back exam: Denies: CVA tenderness (R), CVA tenderness (L) - Neurological Neurological exam: Alert, Oriented X3 - Psychiatric Psychiatric exam: Normal affect, Normal mood - Skin Skin exam: Dry, Intact, Normal color, Warm Course - Reevaluation(s) Reevaluation #1: 05/01/17 11:43 No retention Bladder Scan is 19 05/01/17 12:00 The UA is negative Chlamydia sent Disposition Disposition: Discharge Clinical Impression: Dysuria Disposition: Home, Self-Care Condition: (1) Good Instructions: Dysuria (ED) Additional Instructions: Call your doctor for close follow up today If this continues you may need to be seen by a urologist or testing for over active bladder. Forms: Patient Portal Access Time of Disposition: 12:04 Quality - Quality Measures Quality Measures: N/A - Blood Pressure Screening Does Patient Have Any of the Following: No Blood Pressure Classification: Pre-Hypertensive BP Reading Systolic Measurement: 129 Diastolic Measurement: 80 Screening for High Blood Pressure: < Pre-Hypertensive BP, F/U Documented > [ G8950] Pre-Hypertensive Follow-up Interventions: Referral to alternative/primary care provider.
[2017-05-01 11:51] LABS: URINE APPEARANCE CLEAR; URINE BILIRUBIN NEGATIVE (NEGATIVE); URINE BLOOD NEGATIVE (NEGATIVE); URINE COLOR YELLOW; URINE GLUCOSE (UA) NEGATIVE (NEGATIVE); URINE KETONE NEGATIVE (NEGATIVE); URINE LEUKOCYTE ESTERASE NEGATIVE (NEGATIVE); URINE NITRITE NEGATIVE (NEGATIVE); URINE PROTEIN NEGATIVE (NEGATIVE); URINE UROBILINOGEN 0.2 E.U./dL (0.20 - 1.00)
== END 2017-05-01 12:16 | disposition home or self-care (01) ==
LOC: ER 11:26
DX: R30.0 Dysuria (principal); R35.0 Frequency of micturition; Z87.891 Personal history of nicotine dependence; Z86.73 Personal history of transient ischemic attack (TIA), and cerebral infarction without residual deficits
CPT/HCPCS: 81003; 99283

== ENCOUNTER 2017-10-25 19:14 | Emergency (ER) | payer MEDICAID ==
[2017-10-25] MEDS ORDERED: IPRATROPIUM/ALBUTEROL 4 GM INH INH ONE (20:00)
[2017-10-25] MEDS ORDERED: METHYLPREDNISOLONE PF 125MG/VIAL IM ONE (20:02)
[2017-10-25] MEDS ORDERED: AZITHROMYCIN 500 MG TABLET PO ONE (20:03)
--- NOTE | 2017-10-25 20:04 | Emergency Department Record ---
History of Present Illness - General Chief complaint: Cold Stated complaint: CONGESTION Time Seen by Provider: 10/25/17 19:59 Source: Patient Mode of Arrival: Ambulatory - History of Present Illness Initial comments: Coughing up thick green and now short of breath feeling congested. No fevers, chills chest pain. History of environmental allergies. Onset/Timin -: Days(s) Improves with: None Worsens with: None Associated Symptoms: Cough - Related Data Previous Rx's Medication Instructions Recorded Azithromycin [Zithromax] 250 mg PO DAILY #4 tab 10/25/17 Cetirizine HCl [Zyrtec] 10 mg PO DAILY #30 cap 10/25/17 Allergies Allergy/AdvReac Type Severity Reaction Status Date / Time Opioids - Morphine Analogues Allergy Intermediate RASH Verified 10/25/17 19:21 aspirin Allergy HYPERSENSIT Verified 10/25/17 19:21 IVITY Penicillins Allergy ANAPHYLAXIS Verified 10/25/17 19:21 Travel Screening - Travel/Exposure Within Last 30 Days Have you traveled within the last 30 days?: No - Travel/Exposure Within Last Year Have you traveled outside the [place] in the last year?: No - Additonal Travel Details Have you been exposed to anyone with a communicable illness?: No - Travel Symptoms Symptom Screening: None Review of Systems Reviewed: No additional complaints except as noted below Constitutional: Reports: As per HPI. Denies: Chills, Fever, Malaise, Night sweats, Weakness, Weight change Eyes: Reports: As per HPI. Denies: Eye discharge, Eye pain, Photophobia, Vision change ENT: Reports: As per HPI. Denies: Congestion, Dental pain, Ear pain, Epistaxis , Hearing loss, Throat pain Respiratory: Reports: As per HPI. Denies: Cough, Dyspnea, Hemoptysis, Stridor, Wheezes Cardiovascular: Reports: As per HPI. Denies: Arrhythmia, Chest pain, Dyspnea on exertion, Edema, Murmurs, Orthopnea, Palpitations, Paroxysmal nocturnal dyspnea, Rheumatic Fever, Syncope Endocrine: Reports: As per HPI. Denies: Fatigue, Heat or cold intolerance, Polydipsia, Polyuria Gastrointestinal: Reports: As per HPI. Denies: Abdominal pain, Constipation, Diarrhea, Hematemesis, Hematochezia, Melena, Nausea, Vomiting Genitourinary: Reports: As per HPI. Denies: Abnormal menses, Discharge, Dyspareunia, Dysuria, Frequency, Hematuria, Incontinence, Retention, Urgency Musculoskeletal: Reports: As per HPI. Denies: Arthralgia, Back pain, Gout, Joint swelling, Myalgia, Neck pain Skin: Reports: As per HPI. Denies: Bruising, Change in color, Change in hair/ nails, Lesions, Pruritus, Rash Neurological: Reports: As per HPI. Denies: Abnormal gait, Confusion, Headache, Numbness, Paresthesias, Seizure, Tingling, Tremors, Vertigo, Weakness Psychiatric: Reports: As per HPI. Denies: Anxiety, Auditory hallucinations, Depression, Homicidal thoughts, Suicidal thoughts, Visual hallucinations Hematological/Lymphatic: Reports: As per HPI. Denies: Anemia, Blood Clots, Easy bleeding, Easy bruising, Swollen glands Past Medical History - SOCIAL HISTORY Smoking Status: Former smoker Alcohol Use: None Drug Use: None - RESPIRATORY Hx Respiratory Disorders: Yes Hx Asthma: Yes (childhood) Comment:: seasonal allergies - CARDIOVASCULAR Hx Cardio Disorders: No - NEURO Hx Neuro Disorders: Yes Hx Seizures: Yes (2011) Hx TIA: Yes - GI Hx GI Disorders: Yes Comment:: colitis - Hx Genitourinary Disorders: No - ENDOCRINE Hx Endocrine Disorders: No - MUSCULOSKELETAL Hx Musculoskeletal Disorders: Yes Hx Fibromyalgia: Yes - PSYCH Hx Psych Problems: Yes Hx Anxiety: Yes Hx Depression: Yes Comment:: panic attacts/ bipolar - HEMATOLOGY/ONCOLOGY Hx Hematology/Oncology Disorders: No Family Medical History Any Significant Family History?: No Hx Diabetes: Mother, Grandparents Physical Exam - General General Appearance: Alert, Oriented x3, Cooperative, No acute distress - Head Head exam: Normal inspection - Eye Eye exam: Normal appearance, PERRL, EOMI. negative: Conjunctival injection, Nystagmus Pupils: Normal accommodation - ENT ENT exam: Normal exam, Mucous membranes moist, Normal external ear exam, Normal orophraynx, TM's normal bilaterally Ear exam: Normal external inspection. negative: External canal tenderness Nasal Exam: Normal inspection. negative: Discharge, Sinus tenderness Mouth exam: Normal external inspection, Tongue normal Teeth exam: Normal inspection. negative: Dental caries Throat exam: Normal inspection. negative: Tonsillar erythema, Tonsillar exudate - Neck Neck exam: Normal inspection, Full ROM. negative: Lymphadenopathy, Meningismus , Tenderness - Respiratory Respiratory exam: Normal lung sounds bilaterally, Wheezes (expiratory), Other ( speaks full sentences easily). negative: Accessory muscle use, Chest wall tenderness, Decreased breath sounds, Respiratory distress - Cardiovascular Cardiovascular Exam: Regular rate, Normal rhythm, Normal heart sounds - GI/Abdominal GI/Abdominal exam: Soft, Normal bowel sounds. negative: Tenderness - Rectal Rectal exam: Deferred - exam: Deferred - Extremities Extremities exam: Normal inspection, Full ROM, Normal capillary refill. negative: Tenderness - Back Back exam: Reports: Normal inspection, Full ROM. Denies: Muscle spasm, Rash noted, Tenderness - Neurological Neurological exam: Alert, Normal gait, Oriented X3, Reflexes normal - Psychiatric Psychiatric exam: Normal affect, Normal mood - Skin Skin exam: Dry, Intact, Normal color, Warm Course Vital Signs 10/25/17 19:22 Temperature 98.3 F Pulse Rate 86 Respiratory 20 Rate Blood Pressure 129/58 Pulse Ox 98 Medical Decision Making - Management Options MDM Management: No Additional Work-up Planned Disposition Disposition: Discharge Clinical Impression: Environmental and seasonal allergies Asthmatic bronchitis with acute exacerbation Qualifiers: Asthma severity: mild Asthma persistence: intermittent Qualified Code(s): J45.21 - Mild intermittent asthma with (acute) exacerbation Disposition: Home, Self-Care Condition: (1) Good Instructions: How to Use a Nebulizer (ED), Allergies (ED) Additional Instructions: zithromax as directed until gone. Zytec as directed for seasonal allergies. tylenol alternated with ibuprofen as directed as needed for pain. Push fluids. Prescriptions: Azithromycin [Zithromax] 250 mg PO DAILY #4 tab Cetirizine HCl [Zyrtec] 10 mg PO DAILY #30 cap Quality - Quality Measures Quality Measures: N/A - Blood Pressure Screening Does Patient Have Any of the Following: No Blood Pressure Classification: Pre-Hypertensive BP Reading Systolic Measurement: 129 Diastolic Measurement: 58 Screening for High Blood Pressure: < Normal BP, F/U Not Required > [G8783]
[2017-10-25] MEDS ORDERED: ALBUTEROL HFA 8 GM INHALER INH ONE (20:13)
== END 2017-10-25 20:36 | disposition home or self-care (01) ==
LOC: ER 19:14
DX: J45.21 Mild intermittent asthma with (acute) exacerbation (principal); J30.2 Other seasonal allergic rhinitis; Z87.891 Personal history of nicotine dependence
CPT/HCPCS: 94640; 94664; 96372; 99283; 99284; J2930

== ENCOUNTER 2018-02-07 19:03 | Emergency (ER) | payer MEDICAID ==
[2018-02-07] MEDS ORDERED: ACETAMINOPHEN 1,000 MG/100 ML BTL IVPB ONE (19:16)
--- NOTE | 2018-02-07 19:21 | Emergency Department Record ---
History of Present Illness - General Chief complaint: Female Urogenital Problem Stated complaint: PASSING LG BLOOD CLOTS Time Seen by Provider: 02/07/18 19:14 Source: Patient, Family Mode of Arrival: Ambulatory Limitations: No limitations - History of Present Illness Initial comments: 47 yo female presents with pelvic cramps and vaginal bleeding. She reports that she has an appointment with a [employer]INE[employer] at [facility] on February 12 for long standing DUB. She has two periods per month for many months. Tonight she is passing larger clots. No chest pain, syncope, shortness of breath. She states she has cysts. She states she has uterine fibroids. She is on Plavix. MD Complaint: Vaginal bleeding -: Month(s) Location: Suprapubic Radiation: Non-radiating Severity: Moderate Quality: Aching, Cramping Consistency: Intermittent Improves with: None Worsens with: None Associated Symptoms: Abdominal pain - Related Data Previous Rx's Medication Instructions Recorded Nitrofurantoin Monohyd/M-Cryst 100 mg PO BID #14 capsule 02/07/18 [Macrobid 100 mg Capsule] Allergies Allergy/AdvReac Type Severity Reaction Status Date / Time Opioids - Morphine Analogues Allergy Intermediate RASH Verified 10/25/17 19:21 aspirin Allergy HYPERSENSIT Verified 10/25/17 19:21 IVITY Penicillins Allergy ANAPHYLAXIS Verified 10/25/17 19:21 Review of Systems Constitutional: Denies: Chills, Fever, Weakness Eyes: Denies: Eye discharge, Eye pain ENT: Denies: Congestion, Throat pain Respiratory: Denies: Cough, Dyspnea Cardiovascular: Denies: Chest pain, Palpitations, Syncope Endocrine: Denies: Fatigue Gastrointestinal: Denies: Abdominal pain, Diarrhea, Nausea, Vomiting Genitourinary: Denies: Dysuria Musculoskeletal: Denies: Arthralgia, Back pain, Myalgia Skin: Denies: Bruising, Change in color, Rash Neurological: Denies: Headache Psychiatric: Denies: Anxiety Hematological/Lymphatic: Reports: Easy bleeding, Easy bruising Past Medical History - SOCIAL HISTORY Smoking Status: Former smoker Drug Use: None - RESPIRATORY Hx Respiratory Disorders: Yes Hx Asthma: Yes (childhood) Comment:: seasonal allergies - CARDIOVASCULAR Hx Cardio Disorders: No - NEURO Hx Neuro Disorders: Yes Hx Seizures: Yes (2011) Hx TIA: Yes - GI Hx GI Disorders: Yes Comment:: colitis - Hx Genitourinary Disorders: No - ENDOCRINE Hx Endocrine Disorders: No - MUSCULOSKELETAL Hx Musculoskeletal Disorders: Yes Hx Fibromyalgia: Yes - PSYCH Hx Psych Problems: Yes Hx Anxiety: Yes Hx Depression: Yes Comment:: panic attacts/ bipolar - HEMATOLOGY/ONCOLOGY Hx Hematology/Oncology Disorders: No Family Medical History Hx Diabetes: Mother, Grandparents Physical Exam - General General Appearance: Alert, Oriented x3, Cooperative, No acute distress - Head Head exam: Atraumatic, Normal inspection - Eye Eye exam: Normal appearance - ENT ENT exam: Normal exam Ear exam: Normal external inspection Nasal Exam: Normal inspection Mouth exam: Normal external inspection - Neck Neck exam: Normal inspection - Cardiovascular Cardiovascular Exam: Regular rate, Normal rhythm, Normal heart sounds - Extremities Extremities exam: Normal inspection - Back Back exam: Denies: CVA tenderness (R), CVA tenderness (L) - Neurological Neurological exam: Alert, Oriented X3 - Psychiatric Psychiatric exam: Normal affect, Normal mood - Skin Skin exam: Dry, Intact, Normal color, Warm Course - Reevaluation(s) Reevaluation #1: 02/07/18 20:31 The labs were reviewed The Hgb is 11.5 up from 11.4 The UA has some consistency with UTI. This will be treated She does not have any abnormal vitals or significant changes in labs She has known fibroids. No indication for emergent transfer or imaging tonight The findings seem stable, chronic and not acutely causing complications We discussed reasons for a recheck and her follow up as scheduled through her PCP 02/07/18 21:18 Medical Decision Making - Lab Data Result diagrams: 02/07/18 19:25 02/07/18 19:25 Disposition Disposition: Discharge Clinical Impression: Vaginal bleeding, Dysfunctional uterine bleeding Disposition: Home, Self-Care Condition: (1) Good Instructions: Dysfunctional Uterine Bleeding (ED) Additional Instructions: Call your doctor for close follow up of the uterine fibroids with bleeding Be seen immediately if you have any concerns or symptoms Prescriptions: Nitrofurantoin Monohyd/M-Cryst [Macrobid 100 mg Capsule] 100 mg PO BID #14 capsule Forms: Patient Portal Access Time of Disposition: 20:33 Quality - Quality Measures Quality Measures: N/A - Blood Pressure Screening Does Patient Have Any of the Following: No Blood Pressure Classification: Hypertensive Reading Systolic Measurement: 141 Diastolic Measurement: 105 Screening for High Blood Pressure: < Pre-Hypertensive BP, F/U Documented > [ G8950] Pre-Hypertensive Follow-up Interventions: Referral to alternative/primary care provider.
[2018-02-07 19:32] LABS: BASO % 0.5 % (0-6); GRAN % 57.2 % (47-80); HEMATOCRIT 34.9 % (35.0-47.0); HEMOGLOBIN 11.5 gm/dl (11.6-16.0); MEAN CELL VOLUME 91.1 fl (81-97); MEAN PLATELET VOLUME 9.5 fl (7.4-10.4); MONO % 9.3 % (0-9); PLATELET COUNT 289 K/uL (130-400); RED BLOOD COUNT 3.83 M/uL (3.80-5.40); RED CELL DISTRIBUTION WIDTH 13.2 % (11.5-14.5); WHITE BLOOD COUNT W/O DIFF 4.2 K/uL (4.2-12.2)
[2018-02-07 19:42] LABS: BLOOD UREA NITROGEN 8 mg/dL (6-20); CREATININE 0.7 mg/dL (0.5-0.9); EST GLOMERULAR FILTRATION RATE > 60 mL/min
[2018-02-07 19:43] LABS: PARTIAL THROMBOPLASTIN TIME 29.3 SECONDS (24.5-39.1); PROTHROMBIN TIME (PATIENT) 10.4 SECONDS (9.5-12.1)
[2018-02-07 19:44] LABS: GLUCOSE,RANDOM 89 mg/dL (74-109)
[2018-02-07 20:20] LABS: URINE APPEARANCE TURBID; URINE BILIRUBIN SMALL (NEGATIVE); URINE BLOOD LARGE (NEGATIVE); URINE COLOR RED; URINE GLUCOSE (UA) NEGATIVE (NEGATIVE); URINE KETONE TRACE (NEGATIVE); URINE LEUKOCYTE ESTERASE TRACE (NEGATIVE); URINE NITRITE POSITIVE (NEGATIVE)
[2018-02-07 20:29] LABS: URINE EPITHELIAL CELLS 0 - 2 (FEW)
[2018-02-07 20:30] LABS: URINE BACTERIA FEW
[2018-02-07] MEDS ORDERED: NITROFURANTOIN MONO 100 MG CAPSULE PO ONE (20:35)
[2018-02-09 15:38] LABS: GC SPECIMEN TYPE Vaginal
== END 2018-02-07 21:03 | disposition home or self-care (01) ==
LOC: ER 19:03
DX: N93.8 Other specified abnormal uterine and vaginal bleeding (principal); Z87.891 Personal history of nicotine dependence
CPT/HCPCS: 99284 ×2; 96374; 85025; 85730; 85610; 80048; 81001; Q0111; 87210

== ENCOUNTER 2018-05-15 21:27 | Emergency (ER) | payer MEDICAID ==
[2018-05-15] MEDS ORDERED: ACETAMINOPHEN 325 MG TAB PO ONE (21:48)
[2018-05-15] MEDS ORDERED: ACETAMINOPHEN 1,000 MG/100 ML BTL IVPB ONE (21:50)
--- NOTE | 2018-05-15 21:50 | Emergency Department Record ---
History of Present Illness - General Chief complaint: Pain Stated complaint: PAIN IN HEAD AND NECK Time Seen by Provider: 05/15/18 21:29 Source: Patient Mode of Arrival: Ambulatory Limitations: No limitations - History of Present Illness Initial comments: The patient is here due to multiple complaints. She has had a neck and head pain for about a week. The pain is in the L superior posterior neck. The onset was after sleeping on her couch with her head twisted which she believes started the pain. The patient states she has had similar issues in the past with neck pain. She did have a brain MRI today in [place] for routine follow up issues due to her brain coils but does not know the results. The patient also has had one day of cough, runny nose, low grade fever, body aches and head congestion. The patient denies any visual changes, arm or leg numbness, ataxia, weakness, or any bowel or bladder issues. The patient does have a hx of multiple brain surgeries due to aneurysms and she did not get a flu shot this year. MD Complaint: Neck Pain Onset/Timin -: Week(s) Consistency: Constant Improves with: Nothing Worsens with: Nothing Associated Symptoms: Denies other symptoms - Related Data Home Medications Medication Instructions Recorded Confirmed Last Taken Oxybutynin Chloride [Ditropan Xl] 5 mg PO DAILY 05/15/18 05/15/18 Unknown Previous Rx's Medication Instructions Recorded Cyclobenzaprine HCl [Flexeril] 10 mg PO BID PRN #15 tablet 05/15/18 Oseltamivir Phosphate [Tamiflu] 75 mg PO BID #10 capsule 05/15/18 Allergies Allergy/AdvReac Type Severity Reaction Status Date / Time Opioids - Morphine Analogues Allergy Intermediate RASH Unverified 04/02/18 18:31 aspirin Allergy HYPERSENSIT Unverified 04/02/18 18:31 IVITY Penicillins Allergy ANAPHYLAXIS Unverified 04/02/18 18:31 Travel Screening - Travel/Exposure Within Last 30 Days Have you traveled within the last 30 days?: No Review of Systems Constitutional: Reports: Malaise. Denies: Chills, Fever Eyes: Denies: Eye discharge ENT: Reports: Congestion Respiratory: Reports: Cough. Denies: Dyspnea Cardiovascular: Denies: Arrhythmia, Chest pain Endocrine: Denies: Fatigue Gastrointestinal: Denies: Nausea Genitourinary: Denies: Dysuria Musculoskeletal: Denies: Arthralgia Neurological: Denies: Abnormal gait Past Medical History - SOCIAL HISTORY Smoking Status: Former smoker Alcohol Use: None Drug Use: None - RESPIRATORY Hx Respiratory Disorders: Yes Hx Asthma: Yes (childhood) Comment:: seasonal allergies - CARDIOVASCULAR Hx Cardio Disorders: No - NEURO Hx Neuro Disorders: Yes Hx Seizures: Yes (2011) Hx TIA: Yes - GI Hx GI Disorders: Yes Comment:: colitis - Hx Genitourinary Disorders: No - ENDOCRINE Hx Endocrine Disorders: No - MUSCULOSKELETAL Hx Musculoskeletal Disorders: Yes Hx Fibromyalgia: Yes - PSYCH Hx Psych Problems: Yes Hx Anxiety: Yes Hx Depression: Yes Comment:: panic attacts/ bipolar - HEMATOLOGY/ONCOLOGY Hx Hematology/Oncology Disorders: No Hx Anemia: Yes Family Medical History Any Significant Family History?: Yes Hx Diabetes: Mother, Grandparents Physical Exam - General General Appearance: Alert, Oriented x3, Cooperative, No acute distress (The patient appears comfortable in no distress and clearly nontoxic in appearance.) - Head Head exam: Atraumatic, Normocephalic, Normal inspection - Eye Eye exam: Normal appearance, PERRL, EOMI. negative: Conjunctival injection - ENT ENT exam: Normal exam, Mucous membranes moist, Normal external ear exam, Normal orophraynx, TM's normal bilaterally Throat exam: Normal inspection. negative: Tonsillar erythema, Tonsillar exudate - Neck Neck exam: Normal inspection, Full ROM, Tenderness (The pain in the neck is 100 % reproducible to palpation.). negative: Lymphadenopathy, Meningismus - Respiratory Respiratory exam: Normal lung sounds bilaterally. negative: Respiratory distress - Cardiovascular Cardiovascular Exam: Regular rate, Normal rhythm, Normal heart sounds - GI/Abdominal GI/Abdominal exam: Soft, Normal bowel sounds. negative: Tenderness - Extremities Extremities exam: Normal inspection, Full ROM, Normal capillary refill. negative: Tenderness Image of Full Body: 1 - Area of pain and 100% reproducible tenderness. - Back Back exam: Reports: Normal inspection - Neurological Neurological exam: Alert, Altered, CN II-XII intact, Normal gait, Oriented X3, Reflexes normal, Other (Neg Drift and Rhomberg exams.). negative: Abnormal gait , Motor sensory deficit - Psychiatric Psychiatric exam: negative: Anxious - Skin Skin exam: negative: Rash Course Vital Signs 05/15/18 21:32 Temperature 99.7 F H Pulse Rate [ 95 H Pulse Ox Probe] Respiratory 24 Rate Blood Pressure 158/92 [Left Arm] Pulse Ox 99 - Reevaluation(s) Reevaluation #1: The patient is doing better at this time. Her pain is 50% improved and her temp is improved. She is up walking with no balance issues or weakness and is laughing and joking with her . The patient appears very comfortable and no nontoxic in appearance. I did discuss the fact that her test results did not demonstrate any reason for her recent illness but I do believe the Flu test could be a false neg. Due to that fact we will place the patient on a muscle relaxer due to the chronic neck pain and Tamiflu for the presumed Influenza. 05/15/18 22:51 Reevaluation #2: The patient is doing very well at this time. She is presently sitting on the side of the bed in room # 1, with her legs crossed and she is texting on her phone. She feels very comfortable going home. 05/15/18 22:58 Medical Decision Making - Data Complexity MDM Data: Labs Ordered and/or Reviewed, X-Ray Ordered and/or Reviewed - Lab Data Result diagrams: 05/15/18 21:58 05/15/18 21:58 - Radiology Data Radiology results: Report reviewed (CXR: Neg.) Disposition Disposition: Discharge Clinical Impression: Cervical muscle strain Qualifiers: Encounter type: initial encounter Qualified Code(s): S16.1XXA - Strain of muscle, fascia and tendon at neck level, initial encounter Disposition: Home, Self-Care Condition: (2) Stable Instructions: Cervical Strain (ED) Additional Instructions: Please continue your regular medicines and add the Tamifl and Flexeril. Please see your family doctor in 3 days if not better and return to the ER for any worsening symptoms. Prescriptions: Cyclobenzaprine HCl [Flexeril] 10 mg PO BID PRN #15 tablet PRN Reason: Pain Oseltamivir Phosphate [Tamiflu] 75 mg PO BID #10 capsule Forms: Patient Portal Access Time of Disposition: 22:55 Quality - Quality Measures Quality Measures: N/A - Blood Pressure Screening View Details: Yes Does Patient Have Any of the Following: No Blood Pressure Classification: Pre-Hypertensive BP Reading Systolic Measurement: 120 Diastolic Measurement: 77 Screening for High Blood Pressure: < Pre-Hypertensive BP, F/U Documented > [ G8950] Pre-Hypertensive Follow-up Interventions: Referral to alternative/primary care provider.
[2018-05-15 22:06] LABS: MEAN CELL VOLUME 92.7 fl (81-97); MEAN CORPUSCULAR HEMOGLOBIN 29.3 pg (27-33); MEAN CORPUSCULAR HGB CONC 31.6 g/dl (32-36); MEAN PLATELET VOLUME 9.3 fl (7.4-10.4); PLATELET COUNT 249 K/uL (130-400); RED CELL DISTRIBUTION WIDTH 13.9 % (11.5-14.5); WHITE BLOOD COUNT W/O DIFF 5.2 K/uL (4.2-12.2)
[2018-05-15 22:08] LABS: URINE APPEARANCE CLEAR; URINE BILIRUBIN NEGATIVE (NEGATIVE); URINE BLOOD SMALL (NEGATIVE); URINE COLOR YELLOW; URINE GLUCOSE (UA) NEGATIVE (NEGATIVE); URINE KETONE NEGATIVE (NEGATIVE); URINE LEUKOCYTE ESTERASE NEGATIVE (NEGATIVE); URINE NITRITE NEGATIVE (NEGATIVE); URINE PROTEIN NEGATIVE (NEGATIVE); URINE UROBILINOGEN 0.2 E.U./dL (0.20 - 1.00)
[2018-05-15 22:19] LABS: BLOOD UREA NITROGEN 14 mg/dL (6-20); CREATININE 0.7 mg/dL (0.5-0.9); EST GLOMERULAR FILTRATION RATE > 60 mL/min
[2018-05-15 22:20] LABS: TOTAL PROTEIN 6.9 g/dL (6.6-8.7); URINE BACTERIA NONE SEEN; URINE EPITHELIAL CELLS 0 - 2 (FEW); URINE WBC 0 - 2 (0-2/hpf)
[2018-05-15 22:21] LABS: INFLUENZA A NEGATIVE (NEGATIVE); INFLUENZA B NEGATIVE (NEGATIVE)
[2018-05-15 22:22] LABS: GLUCOSE,RANDOM 104 mg/dL (74-109)
[2018-05-15 22:24] LABS: ALB/GLOB RATIO 1.5 (1.1-1.8); ALBUMIN 4.1 g/dL (4.0-5.0); ALKALINE PHOSPHATASE 54 U/L (35-104); ALT/SGPT 11 U/L (<33); AST/SGOT 15 U/L (10.0-35.0); C-REACTIVE PROTEIN 2.64 mg/dL (<0.5)
--- NOTE | 2018-05-19 11:00 | RADIOLOGY REPORT ---
EXAM: CHEST HISTORY: CHILLS AND HEADACHE, INCREASED TEMPERATURE. TECHNIQUE: Two views of the chest were obtained. Comparison: 04/02/18. FINDINGS: The heart is not enlarged and there is no mediastinal mass. There is no infiltrate or vascular congestion. IMPRESSION: UNREMARKABLE CHEST. JOB NUMBER: [id number] MTDD
== END 2018-05-15 23:04 | disposition home or self-care (01) ==
LOC: ER 21:27
DX: S16.1XXA Strain of muscle, fascia and tendon at neck level, initial encounter (principal); R51 Headache; R05 Cough; R50.9 Fever, unspecified; R09.81 Nasal congestion; Z87.891 Personal history of nicotine dependence; Z86.73 Personal history of transient ischemic attack (TIA), and cerebral infarction without residual deficits; X50.1XXA Overexertion from prolonged static or awkward postures, initial encounter; Y92.009 Unspecified place in unspecified non-institutional (private) residence as the place of occurrence of the external cause
CPT/HCPCS: 71046; 80053; 81001; 85027; 86140; 87400; 96374; 99284

== ENCOUNTER 2018-05-20 12:19 | Emergency (ER) | payer MEDICAID ==
[2018-05-20] MEDS ORDERED: IPRATROPIUM/ALBUTEROL (0.5MG/3MG) NEB INH ONE (12:54)
[2018-05-20] MEDS ORDERED: GUAIFENESIN/D-METH. 10 ML UDC PO ONE (12:56)
[2018-05-20] MEDS ORDERED: 0.9 % SODIUM CHLORIDE 1,000 ML BAG IV ONE (12:56)
--- NOTE | 2018-05-20 12:56 | Emergency Department Record ---
History of Present Illness - General Chief complaint: Flu Like Symptoms Stated complaint: FLU Time Seen by Provider: 05/20/18 12:44 Source: Patient Mode of Arrival: Ambulatory - History of Present Illness Initial comments: raspy cough and one dose of tamiflu left and she denies vomiting but having diahrea 4 times a day Onset/Timin -: Days(s) Location: Generalized Severity scale (1-10): 10 Quality: Aching Consistency: Constant Improves with: None Worsens with: None Associated Symptoms: Other - Related Data Previous Rx's Medication Instructions Recorded Cyclobenzaprine HCl [Flexeril] 10 mg PO BID PRN #15 tablet 05/15/18 Oseltamivir Phosphate [Tamiflu] 75 mg PO BID #10 capsule 05/15/18 Azithromycin 250 mg PO DAILY #6 tablet 05/20/18 Allergies Allergy/AdvReac Type Severity Reaction Status Date / Time Opioids - Morphine Analogues Allergy Intermediate RASH Unverified 04/02/18 18:31 aspirin Allergy HYPERSENSIT Unverified 04/02/18 18:31 IVITY Penicillins Allergy ANAPHYLAXIS Unverified 04/02/18 18:31 Travel Screening - Travel/Exposure Within Last 30 Days Have you traveled within the last 30 days?: No Review of Systems Reviewed: No additional complaints except as noted below Constitutional: Reports: As per HPI. Denies: Chills, Fever, Malaise, Night sweats, Weakness, Weight change Eyes: Reports: As per HPI. Denies: Eye discharge, Eye pain, Photophobia, Vision change ENT: Reports: As per HPI. Denies: Congestion, Dental pain, Ear pain, Epistaxis , Hearing loss, Throat pain Respiratory: Reports: As per HPI. Denies: Cough, Dyspnea, Hemoptysis, Stridor, Wheezes Cardiovascular: Reports: As per HPI. Denies: Arrhythmia, Chest pain, Dyspnea on exertion, Edema, Murmurs, Orthopnea, Palpitations, Paroxysmal nocturnal dyspnea, Rheumatic Fever, Syncope Endocrine: Reports: As per HPI. Denies: Fatigue, Heat or cold intolerance, Polydipsia, Polyuria Gastrointestinal: Reports: As per HPI. Denies: Abdominal pain, Constipation, Diarrhea, Hematemesis, Hematochezia, Melena, Nausea, Vomiting Genitourinary: Reports: As per HPI. Denies: Abnormal menses, Discharge, Dyspareunia, Dysuria, Frequency, Hematuria, Incontinence, Retention, Urgency Musculoskeletal: Reports: As per HPI. Denies: Arthralgia, Back pain, Gout, Joint swelling, Myalgia, Neck pain Skin: Reports: As per HPI. Denies: Bruising, Change in color, Change in hair/ nails, Lesions, Pruritus, Rash Neurological: Reports: As per HPI. Denies: Abnormal gait, Confusion, Headache, Numbness, Paresthesias, Seizure, Tingling, Tremors, Vertigo, Weakness Psychiatric: Reports: As per HPI. Denies: Anxiety, Auditory hallucinations, Depression, Homicidal thoughts, Suicidal thoughts, Visual hallucinations Hematological/Lymphatic: Reports: As per HPI. Denies: Anemia, Blood Clots, Easy bleeding, Easy bruising, Swollen glands Past Medical History - SOCIAL HISTORY Smoking Status: Former smoker - RESPIRATORY Hx Respiratory Disorders: Yes Hx Asthma: Yes (childhood) Comment:: seasonal allergies - CARDIOVASCULAR Hx Cardio Disorders: No - NEURO Hx Neuro Disorders: Yes Hx Seizures: Yes (2011) Hx TIA: Yes - GI Hx GI Disorders: Yes Comment:: colitis - Hx Genitourinary Disorders: No - ENDOCRINE Hx Endocrine Disorders: No - MUSCULOSKELETAL Hx Musculoskeletal Disorders: Yes Hx Fibromyalgia: Yes - PSYCH Hx Psych Problems: Yes Hx Anxiety: Yes Hx Depression: Yes Comment:: panic attacts/ bipolar - HEMATOLOGY/ONCOLOGY Hx Hematology/Oncology Disorders: No Hx Anemia: Yes Family Medical History Any Significant Family History?: Yes Hx Diabetes: Mother, Grandparents Physical Exam - General General Appearance: Alert, Oriented x3, Cooperative, No acute distress - Head Head exam: Normal inspection - Eye Eye exam: Normal appearance, PERRL Pupils: Normal accommodation - ENT ENT exam: Normal exam, Mucous membranes moist, Normal external ear exam, Normal orophraynx, TM's normal bilaterally Ear exam: Normal external inspection. negative: External canal tenderness Nasal Exam: Normal inspection. negative: Discharge, Sinus tenderness Mouth exam: Normal external inspection, Tongue normal Teeth exam: Normal inspection. negative: Dental caries Throat exam: Normal inspection. negative: Tonsillar erythema, Tonsillar exudate - Neck Neck exam: Normal inspection, Full ROM. negative: Tenderness - Respiratory Respiratory exam: Normal lung sounds bilaterally. negative: Respiratory distress - Cardiovascular Cardiovascular Exam: Regular rate, Normal rhythm, Normal heart sounds - GI/Abdominal GI/Abdominal exam: Soft, Normal bowel sounds. negative: Tenderness - Rectal Rectal exam: Deferred - exam: Deferred - Extremities Extremities exam: Normal inspection, Full ROM, Normal capillary refill. negative: Tenderness - Back Back exam: Reports: Normal inspection, Full ROM. Denies: Muscle spasm, Rash noted, Tenderness - Neurological Neurological exam: Alert, Normal gait, Oriented X3, Reflexes normal - Psychiatric Psychiatric exam: Normal affect, Normal mood - Skin Skin exam: Dry, Intact, Normal color, Warm Course Vital Signs 05/20/18 12:27 Temperature 97.9 F Pulse Rate 85 Respiratory 18 Rate Blood Pressure 143/86 Pulse Ox 99 Medical Decision Making - Lab Data Result diagrams: 05/20/18 13:10 05/20/18 13:10 Disposition Clinical Impression: Bronchitis Condition: (1) Good Instructions: Acute Bronchitis (ED) Additional Instructions: follow up with family DR ileana castaneda cough syrup 10 ml every 4 hours Prescriptions: Azithromycin 250 mg PO DAILY #6 tablet Forms: Patient Portal Access Quality - Blood Pressure Screening Does Patient Have Any of the Following: No Blood Pressure Classification: Pre-Hypertensive BP Reading Systolic Measurement: 143 Diastolic Measurement: 86 Screening for High Blood Pressure: < Pre-Hypertensive BP, F/U Documented > [ G8950]
[2018-05-20 13:28] LABS: BASO % 0.3 % (0-6); EOS % 1.2 % (0-6); GRAN % 73.8 % (47-80); HEMATOCRIT 37.7 % (35.0-47.0); HEMOGLOBIN 12.1 gm/dl (11.6-16.0); LYMPH % 15.8 % (16-45); MEAN CELL VOLUME 92.4 fl (81-97); MEAN CORPUSCULAR HEMOGLOBIN 29.7 pg (27-33); MEAN CORPUSCULAR HGB CONC 32.1 g/dl (32-36); MEAN PLATELET VOLUME 9.7 fl (7.4-10.4); MONO % 8.9 % (0-9); PLATELET COUNT 277 K/uL (130-400); RED BLOOD COUNT 4.08 M/uL (3.80-5.40); RED CELL DISTRIBUTION WIDTH 13.8 % (11.5-14.5); WHITE BLOOD COUNT W/O DIFF 6.6 K/uL (4.2-12.2)
[2018-05-20 13:46] LABS: INFLUENZA A NEGATIVE (NEGATIVE); INFLUENZA B NEGATIVE (NEGATIVE)
[2018-05-20 14:16] LABS: BLOOD UREA NITROGEN 9 mg/dL (6-20); CREATININE 0.6 mg/dL (0.5-0.9); EST GLOMERULAR FILTRATION RATE > 60 mL/min
[2018-05-20 14:19] LABS: GLUCOSE,RANDOM 92 mg/dL (74-109)
--- NOTE | 2018-05-22 15:02 | RADIOLOGY REPORT ---
EXAM: CHEST 2 VIEWS CLINICAL HISTORY: Difficulty breathing. COMPARISON: 05/15/2018 TECHNIQUE: Frontal and lateral views of the chest were preformed. FINDINGS: Heart size normal. No pulmonary vascular congestion. No infiltrate or pleural effusion. IMPRESSION: 1. Negative chest examination. JOB NUMBER: [id number] MTDD
== END 2018-05-20 14:35 | disposition home or self-care (01) ==
LOC: ER 12:19
DX: J20.9 Acute bronchitis, unspecified (principal); R19.7 Diarrhea, unspecified; Z87.891 Personal history of nicotine dependence
CPT/HCPCS: 71046; 80048; 85025; 87400; 94640; 96360; 99284; J7030

== ENCOUNTER 2018-11-20 16:15 | Emergency (ER) | payer MEDICAID ==
--- NOTE | 2018-11-20 16:42 | Emergency Department Record ---
History of Present Illness - General Chief Complaint: Ankle/Foot Injury Stated Complaint: ANKLE INSURY Time Seen by Provider: 11/20/18 16:35 Source: Patient Mode of Arrival: Ambulatory Limitations: No limitations - History of Present Illness Initial Comments: The patient is here due to L ankle pain. She jumped down from a single step and landed funny on her L ankle. Since it has been painful and she has been limping. The patient has a hx of similar issues 2 years ago with an ankle sprain. She denies any other injuries. MD Complaint: Ankle injury Onset/Timin -: Week(s) Type of Injury: Blunt Place: Home Severity: Severe Severity scale (1-10): >10 Improves With: Nothing Worsens With: Movement, Weight bearing Context: Jumping Associated Symptoms: Able to partially bear weight Treatments Prior to Arrival: Bandage - Related Data Previous Rx's Medication Instructions Recorded Cyclobenzaprine HCl [Flexeril] 10 mg PO BID PRN #15 tablet 05/15/18 Allergies Allergy/AdvReac Type Severity Reaction Status Date / Time Opioids - Morphine Analogues Allergy Intermediate RASH Verified 11/20/18 16:31 aspirin Allergy HYPERSENSIT Verified 11/20/18 16:31 IVITY Penicillins Allergy ANAPHYLAXIS Verified 11/20/18 16:31 Travel Screening - Travel/Exposure Within Last 30 Days Have you traveled within the last 30 days?: No - Travel/Exposure Within Last Year Have you traveled outside the [place] in the last year?: No - Additonal Travel Details Have you been exposed to anyone with a communicable illness?: No - Travel Symptoms Symptom Screening: None Review of Systems Constitutional: Denies: Chills, Fever Past Medical History - SOCIAL HISTORY Smoking Status: Former smoker Alcohol Use: None Drug Use: Occasional Drug Use Detail:: Marijuana - RESPIRATORY Hx Respiratory Disorders: Yes Hx Asthma: Yes (childhood) Comment:: seasonal allergies - CARDIOVASCULAR Hx Cardio Disorders: No - NEURO Hx Neuro Disorders: Yes Hx Seizures: Yes (2011) Hx TIA: Yes - GI Hx GI Disorders: Yes Comment:: colitis - Hx Genitourinary Disorders: No - ENDOCRINE Hx Endocrine Disorders: No - MUSCULOSKELETAL Hx Musculoskeletal Disorders: Yes Hx Fibromyalgia: Yes - PSYCH Hx Psych Problems: Yes Hx Anxiety: Yes Hx Depression: Yes Comment:: panic attacts/ bipolar - HEMATOLOGY/ONCOLOGY Hx Hematology/Oncology Disorders: No Hx Anemia: Yes Family Medical History Any Significant Family History?: Yes Hx Diabetes: Mother, Grandparents Physical Exam - General General Appearance: Alert, Oriented x3, Cooperative, No acute distress - Head Head exam: Atraumatic - Eye Eye exam: Normal appearance - Extremities Extremities exam: Normal inspection (There is no bruising or swelling appreciated.), Full ROM, Normal capillary refill, Tenderness (There is mild to mod tenderness over the L ankle anterior TFL area.), Other (The L foot is NVI.). negative: Joint swelling, Pedal edema - Neurological Neurological exam: Abnormal gait (The patient does ambulate with a slight limp.), Alert, Oriented X3. negative: Altered, Motor sensory deficit, Normal gait - Psychiatric Psychiatric exam: negative: Anxious - Skin Skin exam: negative: Rash Course Vital Signs 11/20/18 16:26 Temperature 98.3 F Pulse Rate 86 Respiratory 16 Rate Blood Pressure 124/86 Pulse Ox 98 - Reevaluation(s) Reevaluation #1: I did explain to the patient that her xrays do appear normal. Due to the persistent pain she may need to see an Pedorthist. She is to wear the splint for a week and see her PCP next week for recheck and for possible referral to Ortho. 11/20/18 17:22 Medical Decision Making - Data Complexity MDM Data: X-Ray Ordered and/or Reviewed - Radiology Data Radiology results: Report reviewed (L ankle: Neg.) Disposition Disposition: Discharge Clinical Impression: Left ankle sprain Qualifiers: Encounter type: initial encounter Involved ligament of ankle: other ligament Qualified Code(s): S93.492A - Sprain of other ligament of left ankle, initial encounter Disposition: Home, Self-Care Condition: (2) Stable Instructions: Ankle Sprain (ED) Additional Instructions: Please wear the splint for a week and use Tylenol for pain. Please see your family doctor for recheck next week and discuss the possibility of an Orthopedic doctor referral. Forms: Patient Portal Access Time of Disposition: 17:24 Quality - Quality Measures Quality Measures: N/A - Blood Pressure Screening View Details: Yes Does Patient Have Any of the Following: No Blood Pressure Classification: Pre-Hypertensive BP Reading Systolic Measurement: 124 Diastolic Measurement: 86 Screening for High Blood Pressure: < Pre-Hypertensive BP, F/U Documented > [G8950] Pre-Hypertensive Follow-up Interventions: Referral to alternative/primary care provider.
--- NOTE | 2018-11-22 20:16 | RADIOLOGY REPORT ---
EXAM: ANKLE LEFT 3 VIEWS HISTORY: TRAUMA, PAIN LEFT ANKLE. TECHNIQUE: Three views left ankle. COMPARISON: Left ankle series 02/28/17. ENCOUNTER: Initial. FINDINGS: The left ankle appears intact with no definite fracture or dislocation identified. No prominent soft tissue swelling evident. IMPRESSION: THE LEFT ANKLE APPEARS ESSENTIALLY NEGATIVE WITH NO DEFINITE FRACTURE IDENTIFIED. JOB NUMBER: [id number] MTDD
== END 2018-11-20 17:34 | disposition home or self-care (01) ==
LOC: ER 16:15
DX: S93.492A Sprain of other ligament of left ankle, initial encounter (principal); X50.0XXA Overexertion from strenuous movement or load, initial encounter; Y92.009 Unspecified place in unspecified non-institutional (private) residence as the place of occurrence of the external cause
CPT/HCPCS: 99283

== ENCOUNTER 2019-03-01 14:40 | Emergency (ER) | payer MEDICAID ==
--- NOTE | 2019-03-01 14:58 | Emergency Department Record ---
History of Present Illness - General Chief Complaint: Ankle/Foot Injury Stated Complaint: LT ANKLE,PAIN Time Seen by Provider: 03/01/19 14:46 Source: Patient Mode of Arrival: Ambulatory Limitations: No limitations - History of Present Illness Initial Comments: The patient is here due to L ankle pain for 2 years. She states she injured it 2 years ago and then it was a little better. She then re-injured it a few months ago and it has been painful since. There is no hx of any recent trauma. The patient is able to walk with pain. MD Complaint: Ankle injury Onset/Timin -: Year(s) Injury: Ankle: Left Type of Injury: Unknown Place: Home Severity: Severe Severity scale (1-10): >10 Improves With: Nothing Worsens With: Movement, Weight bearing Context: Other Associated Symptoms: Ambulatory - Related Data Allergies Allergy/AdvReac Type Severity Reaction Status Date / Time Opioids - Morphine Analogues Allergy Intermediate RASH Verified 11/20/18 16:31 aspirin Allergy HYPERSENSIT Verified 11/20/18 16:31 IVITY Penicillins Allergy ANAPHYLAXIS Verified 11/20/18 16:31 Travel Screening - Travel/Exposure Within Last 30 Days Have you traveled within the last 30 days?: No Review of Systems Constitutional: Denies: Chills, Fever Past Medical History - SOCIAL HISTORY Smoking Status: Former smoker - RESPIRATORY Hx Respiratory Disorders: Yes Hx Asthma: Yes (childhood) Comment:: seasonal allergies - CARDIOVASCULAR Hx Cardio Disorders: No - NEURO Hx Neuro Disorders: Yes Hx Seizures: Yes (2011) Hx TIA: Yes - GI Hx GI Disorders: Yes Comment:: colitis - Hx Genitourinary Disorders: No - ENDOCRINE Hx Endocrine Disorders: No - MUSCULOSKELETAL Hx Musculoskeletal Disorders: Yes Hx Fibromyalgia: Yes - PSYCH Hx Psych Problems: Yes Hx Anxiety: Yes Hx Depression: Yes Comment:: panic attacts/ bipolar - HEMATOLOGY/ONCOLOGY Hx Hematology/Oncology Disorders: No Hx Anemia: Yes Family Medical History Any Significant Family History?: Yes Hx Diabetes: Mother, Grandparents Physical Exam - General General Appearance: Alert, Cooperative, No acute distress - Head Head exam: Atraumatic - Eye Eye exam: Normal appearance - Extremities Extremities exam: Normal inspection (There is no swelling, bruising, or erythema appreciated.), Full ROM, Normal capillary refill, Tenderness (There is anterior lateral L ankle tenderness to palpation which does reprodue the patient's pain. ), Other (The L foot is nontender and NVI.). negative: Calf tenderness, Joint swelling (There is no joint swelling or obvious effusion.), Pedal edema - Neurological Neurological exam: Alert. negative: Motor sensory deficit Course Vital Signs 03/01/19 14:48 Temperature 97.5 F L Pulse Rate 80 Respiratory 16 Rate Blood Pressure 146/86 Pulse Ox 98 - Reevaluation(s) Reevaluation #1: I did discuss the neg xray with the patient and the need for F/U. 03/01/19 15:31 Medical Decision Making - Data Complexity MDM Data: X-Ray Ordered and/or Reviewed - Radiology Data Radiology results: Report reviewed (L ankle: Neg) Disposition Disposition: Discharge Clinical Impression: Chronic ankle pain Qualifiers: Laterality: left Qualified Code(s): M25.572 - Pain in left ankle and joints of left foot Disposition: Home, Self-Care Condition: (2) Stable Instructions: Chronic Pain (ED) Additional Instructions: Please take your home pain medicines as needed and please see your family doctor to obtain an ankle MRI. Please also try to see Dr. Carrillo if possible. Referrals: Rodolfo Carrillo [email or web address] [DOCTOR OF PODIATRY MEDICINE] - Forms: Patient Portal Access Time of Disposition: 15:30 Quality - Quality Measures Quality Measures: N/A - Blood Pressure Screening View Details: Yes Does Patient Have Any of the Following: No Blood Pressure Classification: Pre-Hypertensive BP Reading Systolic Measurement: 146 Diastolic Measurement: 86 Screening for High Blood Pressure: < Pre-Hypertensive BP, F/U Documented > [G8950] Pre-Hypertensive Follow-up Interventions: Referral to alternative/primary care provider.
--- NOTE | 2019-03-01 15:25 | RADIOLOGY REPORT ---
EXAMINATION: Left Ankle, Complete Minimum Three Views EXAM DATE: 03/01/2019 3:10 PM TECHNIQUE: AP, lateral, and oblique INDICATION: trauma COMPARISON: None ENCOUNTER: Initial FINDINGS: Osteopenia. No fracture or dislocation. IMPRESSION: No acute osseous abnormality. Left ankle osteopenia. Dictated by: Isaias Pillai DO on 03/01/2019 3:22 PM. .
== END 2019-03-01 15:40 | disposition home or self-care (01) ==
LOC: ER 14:40
DX: G89.29 Other chronic pain (principal); M25.572 Pain in left ankle and joints of left foot; Z87.891 Personal history of nicotine dependence
CPT/HCPCS: 99283

== ENCOUNTER 2019-03-07 14:31 | Emergency (ER) | payer MEDICAID ==
[2019-03-07] MEDS ORDERED: 0.9 % SODIUM CHLORIDE 1,000 ML BAG IV ONE (14:53)
--- NOTE | 2019-03-07 14:56 | Emergency Department Record ---
History of Present Illness - General Chief complaint: Flu Like Symptoms Stated complaint: ABD PAIN,NAUSEA,FATIGUE Time Seen by Provider: 03/07/19 14:46 Source: Patient, RN notes reviewed Mode of Arrival: Ambulatory - History of Present Illness Initial comments: diarrhea times 5 today and fatigue and nausea. periumbilical pain. PMH CVA 2011 Onset/Timin -: Hour(s) Severity scale (1-10): 7 Quality: Aching Consistency: Constant Improves with: None Worsens with: None Associated Symptoms: Denies other symptoms - Related Data Previous Rx's Medication Instructions Recorded Dicyclomine HCl [Bentyl] 10 mg PO Q8H #15 cap 03/07/19 Allergies Allergy/AdvReac Type Severity Reaction Status Date / Time Opioids - Morphine Analogues Allergy Intermediate RASH Verified 11/20/18 16:31 aspirin Allergy HYPERSENSIT Verified 11/20/18 16:31 IVITY Penicillins Allergy ANAPHYLAXIS Verified 11/20/18 16:31 Travel Screening - Travel/Exposure Within Last 30 Days Have you traveled within the last 30 days?: No Review of Systems Reviewed: No additional complaints except as noted below Constitutional: Reports: As per HPI, Weakness. Denies: Chills, Fever, Malaise, Night sweats, Weight change Eyes: Reports: As per HPI. Denies: Eye discharge, Eye pain, Photophobia, Vision change ENT: Reports: As per HPI. Denies: Congestion, Dental pain, Ear pain, Epistaxis, Hearing loss, Throat pain Respiratory: Reports: As per HPI. Denies: Cough, Dyspnea, Hemoptysis, Stridor, Wheezes Cardiovascular: Reports: As per HPI. Denies: Arrhythmia, Chest pain, Dyspnea on exertion, Edema, Murmurs, Orthopnea, Palpitations, Paroxysmal nocturnal dyspnea, Rheumatic Fever, Syncope Endocrine: Reports: As per HPI. Denies: Fatigue, Heat or cold intolerance, Polydipsia, Polyuria Gastrointestinal: Reports: As per HPI, Abdominal pain, Diarrhea, Nausea. Denies: Constipation, Hematemesis, Hematochezia, Melena, Vomiting Genitourinary: Reports: As per HPI. Denies: Abnormal menses, Discharge, Dyspareunia, Dysuria, Frequency, Hematuria, Incontinence, Retention, Urgency Musculoskeletal: Reports: As per HPI. Denies: Arthralgia, Back pain, Gout, Joint swelling, Myalgia, Neck pain Skin: Reports: As per HPI. Denies: Bruising, Change in color, Change in hair/ nails, Lesions, Pruritus, Rash Neurological: Reports: As per HPI. Denies: Abnormal gait, Confusion, Headache, Numbness, Paresthesias, Seizure, Tingling, Tremors, Vertigo, Weakness Psychiatric: Reports: As per HPI. Denies: Anxiety, Auditory hallucinations, Depression, Homicidal thoughts, Suicidal thoughts, Visual hallucinations Hematological/Lymphatic: Reports: As per HPI. Denies: Anemia, Blood Clots, Easy bleeding, Easy bruising, Swollen glands Past Medical History - SOCIAL HISTORY Smoking Status: Former smoker - RESPIRATORY Hx Respiratory Disorders: Yes Hx Asthma: Yes (childhood) Comment:: seasonal allergies - CARDIOVASCULAR Hx Cardio Disorders: No - NEURO Hx Neuro Disorders: Yes Hx Seizures: Yes (2011) Hx TIA: Yes - GI Hx GI Disorders: Yes Comment:: colitis - Hx Genitourinary Disorders: No - ENDOCRINE Hx Endocrine Disorders: No - MUSCULOSKELETAL Hx Musculoskeletal Disorders: Yes Hx Fibromyalgia: Yes - PSYCH Hx Psych Problems: Yes Hx Anxiety: Yes Hx Depression: Yes Comment:: panic attacts/ bipolar - HEMATOLOGY/ONCOLOGY Hx Hematology/Oncology Disorders: No Hx Anemia: Yes Family Medical History Any Significant Family History?: Yes Hx Diabetes: Mother, Grandparents Physical Exam - General General Appearance: Alert, Oriented x3, Cooperative, No acute distress - Head Head exam: Normal inspection - Eye Eye exam: Normal appearance, PERRL Pupils: Normal accommodation - ENT ENT exam: Normal exam, Mucous membranes moist, Normal external ear exam, Normal orophraynx, TM's normal bilaterally Ear exam: Normal external inspection. negative: External canal tenderness Nasal Exam: Normal inspection. negative: Discharge, Sinus tenderness Mouth exam: Normal external inspection, Tongue normal Teeth exam: Normal inspection. negative: Dental caries Throat exam: Normal inspection. negative: Tonsillar erythema, Tonsillar exudate - Neck Neck exam: Normal inspection, Full ROM. negative: Tenderness - Respiratory Respiratory exam: Normal lung sounds bilaterally. negative: Respiratory distress - Cardiovascular Cardiovascular Exam: Regular rate, Normal rhythm, Normal heart sounds - GI/Abdominal GI/Abdominal exam: Soft, Normal bowel sounds, Tenderness (periumbilical) - Rectal Rectal exam: Deferred - exam: Deferred - Extremities Extremities exam: Normal inspection, Full ROM, Normal capillary refill. negative: Tenderness - Back Back exam: Reports: Normal inspection, Full ROM. Denies: Muscle spasm, Rash noted, Tenderness - Neurological Neurological exam: Alert, Normal gait, Oriented X3, Reflexes normal - Psychiatric Psychiatric exam: Normal affect, Normal mood - Skin Skin exam: Dry, Intact, Normal color, Warm Course Vital Signs 03/07/19 14:35 Temperature 98.2 F Pulse Rate 84 Respiratory 20 Rate Blood Pressure 142/87 Pulse Ox 96 Medical Decision Making - Data Complexity MDM Data: Labs Ordered and/or Reviewed (wbc 5,300) - Lab Data Result diagrams: 03/07/19 15:00 03/07/19 15:00 Disposition Clinical Impression: Gastroenteritis Abdominal pain Qualifiers: Abdominal location: periumbilical Qualified Code(s): R10.33 - Periumbilical pain Diarrhea Qualifiers: Diarrhea type: unspecified type Qualified Code(s): R19.7 - Diarrhea, unspecified Disposition: Home, Self-Care Condition: (1) Good Instructions: Gastroenteritis (ED) Additional Instructions: clear liqids for 24 hours than bland food follow up with family Dr in one week sooner if worse Prescriptions: Dicyclomine HCl [Bentyl] 10 mg PO Q8H #15 cap Forms: Patient Portal Access Time of Disposition: 15:35 Quality - Quality Measures Quality Measures: N/A - Blood Pressure Screening Does Patient Have Any of the Following: No Blood Pressure Classification: Pre-Hypertensive BP Reading Systolic Measurement: 142 Diastolic Measurement: 87 Screening for High Blood Pressure: < Pre-Hypertensive BP, F/U Documented > [G8950] Pre-Hypertensive Follow-up Interventions: Referral to alternative/primary care provider.
[2019-03-07 15:01] LABS: INFLUENZA A NEGATIVE (NEGATIVE); INFLUENZA B NEGATIVE (NEGATIVE)
[2019-03-07 15:11] LABS: ABSOLUTE NEUTROPHIL COUNT 3.86; BASO % 0.4 % (0-6); EOS % 0.8 % (0-6); GRAN % 73.2 % (47-80); HEMOGLOBIN 11.8 gm/dl (11.6-16.0); LYMPH % 17.6 % (16-45); MEAN CORPUSCULAR HEMOGLOBIN 29.6 pg (27-33); MEAN CORPUSCULAR HGB CONC 31.9 g/dl (32-36); MEAN PLATELET VOLUME 9.5 fl (7.4-10.4); PLATELET COUNT 247 K/uL (130-400); RED BLOOD COUNT 3.98 M/uL (3.80-5.40); RED CELL DISTRIBUTION WIDTH 13.4 % (11.5-14.5); WHITE BLOOD COUNT W/O DIFF 5.3 K/uL (4.2-12.2)
[2019-03-07 15:12] LABS: URINE APPEARANCE SL CLOUDY; URINE BILIRUBIN NEGATIVE (NEGATIVE); URINE BLOOD TRACE-I (NEGATIVE); URINE COLOR YELLOW; URINE GLUCOSE (UA) NEGATIVE (NEGATIVE); URINE KETONE NEGATIVE (NEGATIVE); URINE LEUKOCYTE ESTERASE NEGATIVE (NEGATIVE); URINE NITRITE NEGATIVE (NEGATIVE); URINE PROTEIN NEGATIVE (NEGATIVE); URINE UROBILINOGEN 0.2 E.U./dL (0.20 - 1.00)
[2019-03-07 15:20] LABS: URINE BACTERIA NONE SEEN; URINE EPITHELIAL CELLS 0 - 2 (FEW); URINE RBC 0 - 2 (NONE SEEN); URINE WBC NONE SEEN (0-2/hpf)
[2019-03-07 15:22] LABS: BLOOD UREA NITROGEN 9 mg/dL (6-20); CREATININE 0.6 mg/dL (0.5-0.9); EST GLOMERULAR FILTRATION RATE > 60 mL/min
[2019-03-07 15:23] LABS: LIPASE 32 U/L (13-60)
[2019-03-07 15:25] LABS: GLUCOSE,RANDOM 106 mg/dL (74-109)
== END 2019-03-07 15:58 | disposition home or self-care (01) ==
LOC: ER 14:31
DX: K52.9 Noninfective gastroenteritis and colitis, unspecified (principal); R10.33 Periumbilical pain; R11.0 Nausea; R53.83 Other fatigue; Z87.891 Personal history of nicotine dependence
CPT/HCPCS: 80048; 81001; 83690; 85025; 87400; 99284; J7030